=== PATIENT | male | born 1995 | race Two or more races ===

== ENCOUNTER 2017-10-03 22:19 | Observation (INO) | payer OTHER ==
[~2017-10-03] VITALS: Ht 167.6 cm; Wt 90.0 kg
[2017-10-03 22:54] LABS: BASOPHILS # (AUTO) 0.04 x10^3/uL (0-0.3); BASOPHILS % (AUTO) 0 % (0-1); EOSINOPHILS # (AUTO) 0.09 x10^3/uL (0-0.8); EOSINOPHILS % (AUTO) 1 % (1-7); LYMPHOCYTES % (AUTO) 14 % (22-44); MD NO; MEAN CORPUSCULAR HEMOGLOBIN 28.5 pg (27.5-34.5); MEAN CORPUSCULAR HGB CONC 33.2 g/dL (33.2-36.2); MEAN CORPUSCULAR VOLUME 85.9 fL (81-97); MEAN PLATELET VOLUME 8.3 fL (7.4-10.4); MONOCYTES # (AUTO) 0.64 x10^3/uL (0-1.4); MONOCYTES % (AUTO) 6 % (2-9); NEUTROPHILS # (AUTO) 8.98 x10^3/uL (1.8-8.0); NEUTROPHILS % (AUTO) 79 % (42-75); PLATELET COUNT 291 x10^3/uL (130-400); RED BLOOD COUNT 4.98 x10^6/uL (4.38-5.82); RED CELL DISTRIBUTION WIDTH 13.7 % (9.4-14.8)
[2017-10-03 23:07] LABS: ALANINE AMINOTRANSFERASE 25 U/L (12-78); ALBUMIN 4.1 g/dL (3.4-5.0); ANION GAP 7 mmol/L (5-15); CALCIUM 8.8 mg/dL (8.5-10.1); CHLORIDE 108 mmol/L (98-107); CREATININE 0.92 mg/dL (0.7-1.3)
[2017-10-03 23:09] LABS: ALKALINE PHOSPHATASE 102 U/L (45-117); BILIRUBIN,TOTAL 0.4 mg/dL (0.2-1.0); TOTAL PROTEIN 7.8 g/dL (6.4-8.2)
[2017-10-03 23:23] LABS: ACETAMINOPHEN < 2 mcg/mL (10-30); SALICYLATE LEVEL < 1.7 mg/dL (2.8-20.0)
[2017-10-04 00:31] LABS: AMPHETAMINE SCREEN, URINE Negative (Negative); BARBITURATE SCREEN, URINE Negative (Negative); BENZODIAZEPINE SCREEN, URINE Negative (Negative); CANNABINOID SCREEN, URINE Negative (Negative); COCAINE SCREEN, URINE Negative (Negative); METHADONE SCREEN, URINE Negative (Negative); OPIATE SCREEN, URINE Negative (Negative)
[2017-10-04] MEDS ORDERED: ONDANSETRON ODT 4 MG PO PRN (02:00)
[2017-10-04] MEDS ORDERED: ACETAMINOPHEN 325 MG TABLET PO PRN (02:00)
[2017-10-04] MEDS ORDERED: POLYETHYLENE GLYCOL 17 GM PACKET PO PRN (02:00)
[2017-10-04] MEDS ORDERED: ZOLPIDEM 5MG TABLET PO PRN (02:00)
[2017-10-04] MEDS ORDERED: FLUOXETINE 10 MG CAP ONE (14:45)
[2017-10-04] MEDS: FLUOXETINE 10 MG CAP PO SCH (14:53)
[2017-10-04] MEDS ORDERED: ZOLPIDEM 5MG TABLET ONE (20:59)
[2017-10-04] MEDS: RISPERIDONE 1 MG TABLET PO SCH (21:01)
[2017-10-05] MEDS ORDERED: FLUOXETINE 10 MG CAP ONE (09:05)
[2017-10-05] MEDS: FLUOXETINE 10 MG CAP PO SCH (09:08)
[2017-10-05 16:27] VITALS: BP 120/70
[2017-10-05] MEDS: RISPERIDONE 1 MG TABLET PO SCH (20:43)
[2017-10-05 22:48] VITALS: BP 119/81
[2017-10-06 08:00] VITALS: BP 122/75
[2017-10-06] MEDS: FLUOXETINE 10 MG CAP PO SCH (08:41)
[2017-10-06 19:55] VITALS: BP 116/79
[2017-10-06] MEDS: RISPERIDONE 1 MG TABLET PO SCH (20:28)
[2017-10-07 08:41] VITALS: BP 113/77
[2017-10-07] MEDS: FLUOXETINE 10 MG CAP PO SCH (08:52)
[2017-10-07 19:55] VITALS: BP 130/87
[2017-10-07] MEDS: RISPERIDONE 1 MG TABLET PO SCH (20:37)
[2017-10-08 07:37] VITALS: BP 119/82
[2017-10-08] MEDS: FLUOXETINE 10 MG CAP PO SCH (08:16)
[2017-10-08 19:58] VITALS: BP 126/82
[2017-10-08] MEDS: RISPERIDONE 1 MG TABLET PO SCH (21:13)
[2017-10-09 07:59] VITALS: BP 132/87
[2017-10-09] MEDS: FLUOXETINE 10 MG CAP PO SCH (08:01)
[2017-10-09] MEDS ORDERED: OXYcodone IR 5MG TABLET PO PRN (14:30)
[2017-10-09] MEDS ORDERED: MORPHINE SULFATE 4 MG/ML, 1ML IV PRN (14:30)
[2017-10-09 14:57] LABS: BASOPHILS # (AUTO) 0.03 x10^3/uL (0-0.3); BASOPHILS % (AUTO) 0 % (0-1); EOSINOPHILS # (AUTO) 0.18 x10^3/uL (0-0.8); EOSINOPHILS % (AUTO) 2 % (1-7); LYMPHOCYTES # (AUTO) 1.87 x10^3/uL (1-6.1); LYMPHOCYTES % (AUTO) 18 % (22-44); MD NO; MEAN CORPUSCULAR HEMOGLOBIN 28.5 pg (27.5-34.5); MEAN CORPUSCULAR HGB CONC 33.5 g/dL (33.2-36.2); MEAN PLATELET VOLUME 8.3 fL (7.4-10.4); MONOCYTES # (AUTO) 0.85 x10^3/uL (0-1.4); MONOCYTES % (AUTO) 8 % (2-9); NEUTROPHILS # (AUTO) 7.29 x10^3/uL (1.8-8.0); NEUTROPHILS % (AUTO) 71 % (42-75); PLATELET COUNT 279 x10^3/uL (130-400); RED BLOOD COUNT 5.26 x10^6/uL (4.38-5.82); RED CELL DISTRIBUTION WIDTH 13.4 % (9.4-14.8)
[2017-10-09 15:00] LABS: HCT (SEDRATE) 44.7 % (39.2-51.8)
[2017-10-09 15:06] LABS: ALANINE AMINOTRANSFERASE 33 U/L (12-78); ALBUMIN 4.1 g/dL (3.4-5.0); ANION GAP 6 mmol/L (5-15); CALCIUM 8.9 mg/dL (8.5-10.1); CHLORIDE 107 mmol/L (98-107)
[2017-10-09 15:08] LABS: ALKALINE PHOSPHATASE 113 U/L (45-117); BILIRUBIN,TOTAL 0.4 mg/dL (0.2-1.0); TOTAL PROTEIN 7.6 g/dL (6.4-8.2)
[2017-10-09] MEDS ORDERED: MAALOX/HYOSCYAMINE/LIDOCAINE 45 ML BTL PO ONE (16:30)
[2017-10-09] MEDS ORDERED: OMNIPAQUE 350 MG/ML, 100ML BOTTLE ONE (16:38)
[2017-10-09 19:47] VITALS: BP 131/78
[2017-10-09] MEDS: RISPERIDONE 1 MG TABLET PO SCH (22:00)
[2017-10-10 07:33] VITALS: BP 137/86
[2017-10-10] MEDS: FLUOXETINE 10 MG CAP PO SCH (09:00)
[2017-10-10 19:50] VITALS: BP 124/81
[2017-10-10] MEDS: RISPERIDONE 1 MG TABLET PO SCH (20:49)
[2017-10-11 07:55] VITALS: BP 112/74
[2017-10-11] MEDS: FLUOXETINE 10 MG CAP PO SCH (08:10)
[2017-10-11 19:47] VITALS: BP 129/84
[2017-10-11] MEDS: RISPERIDONE 1 MG TABLET PO SCH (21:00)
[2017-10-12 07:56] VITALS: BP 131/84
[2017-10-12] MEDS: FLUOXETINE 10 MG CAP PO SCH (08:25)
[2017-10-12] MEDS ORDERED: FLUO10CA7 PO (14:55)
[2017-10-12] MEDS ORDERED: RISP1TAB45 PO (14:55)
== END 2017-10-12 15:14 | disposition home or self-care (01) ==
LOC: ED 23:05 → SUATTDRO 10-04 01:55 → EDIP 10-04 01:56 → 3E 10-05 16:13
PROVIDERS: ADMIT Hospitalist; ATTEND Hospitalist
DX: T71.162A Asphyxiation due to hanging, intentional self-harm, initial encounter (principal); E66.9 Obesity, unspecified; F32.9 Major depressive disorder, single episode, unspecified; K21.9 Gastro-esophageal reflux disease without esophagitis; G47.00 Insomnia, unspecified; R10.13 Epigastric pain
CPT/HCPCS: 36415; 72125; 74177; 80053; 80307; 80329; 82150; 83605; 83690; 85025; 85651; 86140; 99285; G0378; Q9967; G0480